=== PATIENT | male | born 1995 | race Caucasian/White ===

== ENCOUNTER 2020-05-13 14:35 | Emergency (ER) | payer OTHER ==
[2020-05-13] MEDS ORDERED: IBUPROFEN 600MG TAB As Ordered ONE (15:59)
[2020-05-13] MEDS ORDERED: IBUPROFEN 600MG TAB ONE (15:59)
[2020-08-05] MEDS ORDERED: OXYC1TAB23 PO (13:12)
== END 2020-05-13 18:00 | disposition home or self-care (01) ==
LOC: M ED 14:35
DX: T14.8XXA Other injury of unspecified body region, initial encounter (principal); V43.52XA Car driver injured in collision with other type car in traffic accident, initial encounter; Y92.410 Unspecified street and highway as the place of occurrence of the external cause

== ENCOUNTER 2020-07-29 16:11 | Emergency (ER) | payer OTHER ==
[~2020-07-29] VITALS: Ht 182.9 cm; Wt 89.5 kg
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
[2020-07-29] MEDS ORDERED: NAPR-837 PO (17:29)
[2020-07-29] MEDS ORDERED: NORC1TAB7 PO (17:29)
[2020-07-29] MEDS ORDERED: PERCOCET 5MG/325MG TAB PO ONE (17:30)
[2020-07-29] MEDS ORDERED: NAPROXEN 250 MG TAB PO ONE (17:30)
[2020-07-29 17:47] VITALS: BP 160/78
[2020-08-05] MEDS ORDERED: OXYC1TAB23 PO (13:12)
== END 2020-07-29 17:47 | disposition home or self-care (01) ==
LOC: M ED 16:11
DX: S42.021A Displaced fracture of shaft of right clavicle, initial encounter for closed fracture (principal); S06.0X0A Concussion without loss of consciousness, initial encounter; S50.311A Abrasion of right elbow, initial encounter; M25.542 Pain in joints of left hand; V28.4XXA Motorcycle driver injured in noncollision transport accident in traffic accident, initial encounter; Y92.410 Unspecified street and highway as the place of occurrence of the external cause

== ENCOUNTER 2020-08-06 11:28 | Day surgery (SDC) | payer OTHER ==
[~2020-08-06] VITALS: Ht 182.9 cm; Wt 87.5 kg
[~2020-08-06 11:28] MED LIST: LR 1,000 ML IV ONE; NAPR-837 PO; NORC1TAB7 PO; OXYC1TAB23 PO; ceFAZolin SOD 2 GM in IV 1 EA IV ONE
[2020-08-06] MEDS ORDERED: ceFAZolin 1GM VIAL (J0690 PER 500MG) As Ordered ONE (13:59)
[2020-08-06] MEDS ORDERED: BUPIVACAINE/EPIN 0.5% 30 ML VIAL As Ordered ONE (14:44)
[2020-08-06] MEDS ORDERED: MIDAZOLAM INJ 2MG/2ML VIAL (J2250 PER 1MG) As Ordered ONE (14:46)
[2020-08-06] MEDS ORDERED: ONDANSETRON 4MG/2ML VIAL As Ordered ONE (14:46)
[2020-08-06] MEDS ORDERED: propofoL 200 MG/20 ML VIAL As Ordered ONE (14:46)
[2020-08-06] MEDS ORDERED: LIDOCAINE 2% 100MG/5ML SDV (FOR ANES.) As Ordered ONE (14:46)
[2020-08-06] MEDS ORDERED: HYDROmorphone HCL 2 MG/ML 1ML VIAL (J1170) As Ordered ONE (14:46)
[2020-08-06] MEDS ORDERED: ROCURONIUM BROMIDE 50 MG/5 ML VIAL As Ordered ONE (14:46)
[2020-08-06] MEDS ORDERED: fentaNYL 100 MCG/2 ML INJECTION (J3010) As Ordered ONE (14:46)
[2020-08-06] MEDS ORDERED: dexameTHASONE 4 MG/ML 1ML VIAL (J1100 PER 1MG) As Ordered ONE (14:46)
[2020-08-06] MEDS ORDERED: SUGAMMADEX SODIUM 500 MG/5 ML VIAL (BRIDION) As Ordered ONE (14:56)
[2020-08-06] MEDS ORDERED: KETOROLAC 60MG 2ML VIAL As Ordered ONE (15:09)
[2020-08-06] MEDS ORDERED: PERCOCET 5MG/325MG TAB PO PRN ×2 (15:45→16:00)
[2020-08-06] MEDS ORDERED: ONDANSETRON 4MG/2ML VIAL IV PRN ×2 (15:45→16:00)
[2020-08-06] MEDS ORDERED: LR 1,000 ML IV SCH ×2 (15:45→16:00)
[2020-08-06] MEDS ORDERED: METOCLOPRAMIDE INJ 10MG/2ML VIAL (J2765 PER 1) IV PRN (15:45)
[2020-08-06] MEDS: fentaNYL 100 MCG/2 ML INJECTION (J3010) IV PRN ×2 (15:59→16:04)
[2020-08-06] MEDS ORDERED: ACETAMINOPHEN TAB 650MG DOSE (2X325MG) PO PRN (16:00)
[2020-08-06] MEDS ORDERED: MORPHINE 2 MG/ML 1ML VIAL (J2270) IV PRN (16:00)
--- NOTE | 2020-08-06 16:07 | REP ---
INDICATION: RIGHT CLAVICLE FRACTURE. COMPARISON: 07/29/2020. TECHNIQUE: Three C-arm views right clavicle performed. FINDINGS: Metallic plate and screws are seen in the right clavicle bridging a fracture of the midshaft. The osseous structures are well-aligned. IMPRESSION: 2 seconds of fluoroscopy time utilized. <Electronically signed by Shravan Vela > 08/06/20 [id number]
[2020-08-06 17:35] VITALS: BP 122/70
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
== END 2020-08-06 17:48 | disposition home or self-care (01) ==
LOC: M SDC 11:28
PROVIDERS: ATTEND Orthopaedic Surgery Sports Medicine
DX: S42.021A Displaced fracture of shaft of right clavicle, initial encounter for closed fracture (principal); V29.9XXA Motorcycle rider (driver) (passenger) injured in unspecified traffic accident, initial encounter; Y92.410 Unspecified street and highway as the place of occurrence of the external cause; Y93.9 Activity, unspecified; Y99.9 Unspecified external cause status; F17.218 Nicotine dependence, cigarettes, with other nicotine-induced disorders
CPT/HCPCS: 23515; 76000; C1713; J0690; J1100; J1170; J1885; J2250; J2405; J3010

== ENCOUNTER 2021-08-04 06:56 | Emergency (ER) | payer OTHER ==
[~2021-08-04] VITALS: Ht 180.3 cm; Wt 86.6 kg
[~2021-08-04 06:56] MED LIST changes: -LR 1,000 ML IV ONE; -ceFAZolin SOD 2 GM in IV 1 EA IV ONE
--- OUTSIDE RECORDS SUMMARY | 2021-08-04 07:08 | CCD ---
Author Author [facility] Organization [facility] Address Unknown Phone Unavailable Care Team Providers Care Manager Appointment Name Role Phone Fish[facility] Unavailable Unavailabl e Fish, [facility], PA-C Unavailable Unavailabl e Fish, [facility], PA-C Unavailable Unavailabl e Fish, [facility], PA-C Unavailable Unavailabl e Fish, [facility], PA-C Unavailable Unavailabl e Fish, [facility], PA-C Unavailable Unavailabl e Fish, [facility], PA-C Unavailable Unavailabl e Fish, [facility], PA-C Unavailable Unavailabl e Fish, [facility], PA-C Unavailable Unavailabl e Fish, [facility], PA-C Unavailable Unavailabl e Fish, [facility], PA-C Unavailable Unavailabl e Fish, [facility], PA-C Unavailable Unavailabl e Fish, [facility], PA-C Unavailable Unavailabl e Fish, [facility], PA-C Unavailable Unavailabl e Fish, [facility], PA-C Unavailable Unavailabl e Fish, [facility], PA-C Unavailable Unavailabl e Fish, [facility], PA-C Unavailable Unavailabl e Fish, [facility], PA-C Unavailable Unavailabl e Fish, [facility], PA-C Unavailable Unavailabl e Fish, [facility], PA-C Unavailable Unavailabl e Fish, [facility], PA-C Unavailable Unavailabl e Fish, [facility], PA-C Unavailable Unavailabl e Fish, [facility], PA-C Unavailable Unavailabl e Fish, [facility] Unavailable Unavailabl e Fish, [facility] Unavailable Unavailabl e Fish, Lashaun [facility], PA-C Unavailable Unavailabl e Fish, Lashaun [facility], PA-C Unavailable Unavailabl e Fish, Lashaun [facility], PA-C Unavailable Unavailabl e Fish, Lashaun [facility], PA-C Unavailable Unavailabl e Fish, Lashaun [facility], PA-C Unavailable Unavailabl e Fish, Lashaun [facility], PA-C Unavailable Unavailabl e Fish, Lashaun [facility], PA-C Unavailable Unavailabl e Fish, [facility] Unavailable Unavailabl e Fish, [facility] Unavailable Unavailabl e Fish, [facility]un [facility], [facility]C Unavailable Unavailabl e Fish, Lashaun [facility], PA-C Unavailable Unavailabl e Mollison, Tim Frank MD Unavailable Unavailable Mollison, Tim Frank MD Unavailable Unavailable Mollison, Tim Frank MD Unavailable Unavailable Mollison, Tim Frank MD Unavailable Unavailable Mollison, Tim Frank MD Unavailable Unavailable Mollison, Tim Frank MD Unavailable Unavailable Mollison, Tim Frank MD Unavailable Unavailable Mollison, Tim Frank MD Unavailable Unavailable Mollison, Tim Frank MD Unavailable Unavailable Mollison, Tim Frank MD Unavailable Unavailable Mollison, Tim Frank MD Unavailable Unavailable Mollison, Tim Frank MD Unavailable Unavailable Mollison, Tim Frank MD Unavailable Unavailable Mollison, Tim Frank MD Unavailable Unavailable Mollison, Tim Frank MD Unavailable Unavailable Mollison, Tim Frank MD Unavailable Unavailable Mollison, Tim Frank MD Unavailable Unavailable Mollison, Tim Frank MD Unavailable Unavailable Mollison, Tim Frank MD Unavailable Unavailable Mollison, Tim Frank MD Unavailable Unavailable Mollison, Tim Frank MD Unavailable Unavailable Mollison, Tim Frank MD Unavailable Unavailable Mollison, Tim Frank MD Unavailable Unavailable Mollison, Tim Frank MD Unavailable Unavailable Mollison, Tim Frank MD Unavailable Unavailable Mollison, Tim Frank MD Unavailable Unavailable Mollison, Tim Frank MD Unavailable Unavailable Mollison, Tim Frank MD Unavailable Unavailable Mollison, Tim Frank MD Unavailable Unavailable Mollison, Tim Frank MD Unavailable Unavailable Re-disclosure Warning The records that you are about to access may contain information from federally-assisted alcohol or drug abuse programs. If such information is present, then the following federally mandated warning applies: This information has been disclosed to you from records protected by federal confidentiality rules (42 CFR part 2). The federal rules prohibit you from making any further disclosure of this information unless further disclosure is expressly permitted by the written consent of the person to whom it pertains or as otherwise permitted by 42 CFR part 2. A general authorization for the release of medical or other information is NOT sufficient for this purpose. The Federal rules restrict any use of the information to criminally investigate or prosecute any alcohol or drug abuse patient.The records that you are about to access may contain highly sensitive health information, the redisclosure of which is protected by Article 27-F of the [facility] Public Health law. If you continue you may have access to information: Regarding HIV / AIDS; Provided by facilities licensed or operated by the [facility] Office of Mental Health; or Provided by the [facility] Office for People With Developmental Disabilities. If such information is present, then the following [facility] mandated warning applies: This information has been disclosed to you from confidential records which are protected by state law. State law prohibits you from making any further disclosure of this information without the specific written consent of the person to whom it pertains, or as otherwise permitted by law. Any unauthorized further disclosure in violation of state law may result in a fine or correction sentence or both. A general authorization for the release of medical or other information is NOT sufficient authorization for further disc losure. Encounters Encounter Providers Location Date Indications Data Source(s ) Outpatient Attender: Zac Piper/Wally/Ernie/Nora indl 08/05/2020 08:00:00 AM EDT [facility] ([facility], ) OFFICE OUTPATIENT NEW 30 MINUTES Attender: Edith LORA PA-C Physical Therapy 08/04/2020 02:45:00 PM EDT [facility] ([facility] ) Immunizations Vaccine Date Status Description Data Source(s) COVID-19 VACCINE Moderna 02/21/2021 12:00:00 AM EDT completed [facility]IS Vaccine Series Complete: YESThis Data wa s Submitted to [facility] Via [employer]. COVID-19 VACCINE Moderna 01/24/2021 12:00:00 AM EDT completed SCSIIS Vaccine Series Complete: NOThis Data was Submitted to [facility] Via [facility]SIIS. Medications Medication Brand Name Start Date Product Form Dose Route Admi nistrative Instructions Pharmacy Instructions Status Indications Reaction Description Data Source(s) Acetaminophen 325 MG / Oxycodone Hydrochloride 5 MG Or al Tablet [Percocet] Percocet 08/04/2020 12:00:00 AM EDT active [facility] ([facility]) Insurance Providers Payer name Policy type / Coverage type Policy ID Covered alliance party ID Covered alliance party's relationship to herrera Policy Herrera Plan Information [facility] ACTIVE DUTY [id number] SELF PAY ONLY [id number] [facility] HUMANA - O/P [id number] Problems, Conditions, and Diagnoses No Information Surgeries/Procedures No Information Results ID Date Data Source [id number] 11/27/2020 10:55:00 AM EST [facility] Name Value Range Interpretation Code Description Data Emily rce(s) Supporting Document(s) SARS coronavirus 2 RNA Detected [facility] This lab was ordered by [facility] and reported by [facility]. Procedure Social History No Information Vital Signs ID Date Data Source UNK Name Value Range Interpretation Code Description Data Source(s) Body temperature 97.1 [degF] 97.1 [degF] [facility] ([facility]) [facility] height [facility] [in_i] [facility] 5'10" Body weight 190.00 [lb_av] 190.00 [lb_av] [facility] T ([facility]) Body mass index (BMI) [Ratio] 27.3 kg/m2 27.3 k g/m2 [facility] ([facility]) [place] body weight 166 [lb_av] 166 [lb_av] [facility] T ([facility]) Body weight 86.184 kg 86.184 kg [facility] ([facility]) Body temperature 97.1 [degF] 97.1 [[facility]F] [facility] Body height 70 [in_i] 70 [in_i] [facility] ([facility]) 5'10" Body weight 190.50 [lb_av] 190.50 [lb_av] [facility] T ([facility]) Body mass index (BMI) [Ratio] 27.3 kg/m2 27.3 k g/m2 [facility] ([facility])
[2021-08-04] MEDS ORDERED: ONDANSETRON 4MG/2ML VIAL IV ONE (07:30)
[2021-08-04] MEDS ORDERED: NS 1,000 ML IV ONE (07:30)
[2021-08-04] MEDS ORDERED: KETOROLAC 30 MG/ML 1ML VIAL IV ONE (07:30)
--- OUTSIDE RECORDS SUMMARY | 2021-08-04 07:30 | CCD ---
Author Author [facility] Organization [facility] Address Unknown Phone Unavailable Care Team Providers Care Hand Buffer Name Role Phone Fish, [facility] Unavailable Unavailabl e Fish, [facility], PA-C Unavailable Unavailabl e Fish, [facility], PA-C Unavailable Unavailabl e Fish, [facility], PA-C Unavailable Unavailabl e Fish, [facility], PA-C Unavailable Unavailabl e Fish, [facility], PA-C Unavailable Unavailabl e Fish, [facility], PA-C Unavailable Unavailabl e Fish, [facility], PA-C Unavailable Unavailabl e Fish, [facility], PA-C Unavailable Unavailabl e Fish, [facility], PA-C Unavailable Unavailabl e Fish, [facility], PA-C Unavailable Unavailabl e Fish, [facility], PA-C Unavailable Unavailabl e Fish, [facility], PA-C Unavailable Unavailabl e Fish, [facility], PA-C Unavailable Unavailabl e Fish, [facility], PA-C Unavailable Unavailabl e Fish, [facility], PA-C Unavailable Unavailabl e Fish, [facility], PA-C Unavailable Unavailabl e Fish, [facility], PA-C Unavailable Unavailabl e Fish, [facility], PA-C Unavailable Unavailabl e Fish, [facility], PA-C Unavailable Unavailabl e Fish, [facility], PA-C Unavailable Unavailabl e Fish, [facility], PA-C Unavailable Unavailabl e Fish, [facility], PA-C Unavailable Unavailabl e Fish, [facility] Unavailable Unavailabl e Fish, [facility] Unavailable Unavailabl e Fish, Lashaun [facility], PA-C Unavailable Unavailabl e Fish, Lashaun [facility], PA-C Unavailable Unavailabl e Fish, Lashaun [facility], PA-C Unavailable Unavailabl e Fish, Lashaun [facility], PA-C Unavailable Unavailabl e Fish, Lashaun [facility], PA-C Unavailable Unavailabl e Fish, Lashaun [facility], PA-C Unavailable Unavailabl e Fish, Lashaun [facility], PA-C Unavailable Unavailabl e Fish, [facility] Unavailable Unavailabl e Fish, [facility], [facility] Unavailable Unavailabl e Fish, [facility] Unavailable Unavailabl e Fish, Lashaun [facility], PA-C Unavailable Unavailabl e Mollison, Tim [...] is protected by Article 27-F of the [facility] Public Health law. If you continue you may have access to information: Regarding HIV / AIDS; Provided by facilities licensed or operated by the [facility] Office of Mental Health; or Provided by the [facility] Office for People With Developmental Disabilities. If such information is present, then the following [facility] mandated warning applies: This information has been [...] law may result in a fine or snf sentence or both. A general authorization for the release of medical or other information is NOT sufficient authorization for further disc losure. Encounters Encounter Providers Location Date Indications Data Source(s ) Outpatient Attender: Zac Piper/Wally/Ernie/Nora indl 08/05/2020 08:00:00 AM EDT [facility] ([facility], ) OFFICE OUTPATIENT NEW 30 MINUTES Attender: Edith LORA PA-C Physical Therapy 08/04/2020 02:45:00 PM EDT [facility] ([facility] ) Immunizations Vaccine Date Status Description Data Source(s) COVID-19 VACCINE Moderna 02/21/2021 12:00:00 AM EDT completed KSSIIS Vaccine Series Complete: YESThis Data wa s Submitted to [facility] Via [employer]. COVID-19 VACCINE Moderna 01/24/2021 12:00:00 AM EDT completed KSSIIS Vaccine Series Complete: NOThis Data was Submitted to [facility] Via NYSIIS. Medications Medication Brand Name Start Date Product Form Dose Route Admi nistrative Instructions Pharmacy Instructions Status Indications Reaction Description Data Source(s) Acetaminophen 325 MG / Oxycodone Hydrochloride 5 MG Or al Tablet [Percocet] Percocet 08/04/2020 12:00:00 AM EDT active [facility] ([facility]) Insurance Providers Payer name Policy type / Coverage type Policy ID Covered republican ID Covered republican's relationship to herrera Policy Herrera Plan Information [facility] ACTIVE DUTY [id number] SELF PAY ONLY [id number] [facility] HUMANA - O/P [id number] 18 [id number] Problems, Conditions, and Diagnoses No Information Surgeries/Procedures No Information Results ID Date Data Source [id number] 11/27/2020 10:55:00 AM EST [facility] Name Value Range Interpretation Code Description Data Emily rce(s) Supporting Document(s) SARS coronavirus 2 RNA Detected [facility] This lab was ordered by [facility] and reported by [facility]. Procedure Social History No Information Vital Signs ID Date Data Source UNK Name Value Range Interpretation Code Description Data Source(s) Body temperature 97.1 [degF] 97.1 [degF] [facility] ([facility]) Body height 70 [in_i] 70 [in_i[facility] 5'10" Body weight 190.00 [lb_av] 190.00 [lb_av] [facility] T ([facility]) Body mass index (BMI) [Ratio] 27.3 kg/m2 27.3 k g/m2 [facility] ([facility]) [place] body weight 166 [lb_av] 166 [lb_av] [facility] T ([facility]) Body weight 86.184 kg 86.184 kg [facility] ([facility]) Body temperature 97.1 [degF] 97.1 [degF] [facility] Body height 70 [in_i] 70 [in_i] [facility] ([facility]) 5'10" Body weight 190.50 [lb_av] 190.50 [lb_av] [facility] T ([facility]) Body mass index (BMI) [Ratio] 27.3 kg/m2 27.3 k g/m2 [facility] ([facility])
[2021-08-04] MEDS ORDERED: ISOVUE-370 76% 100ML VIAL As Ordered ONE (07:56)
[2021-08-04 08:03] LABS: BASO # 0.1 10^3/uL (0.0-0.2); BASO % 1.2 % (0.0-1.0); EOS # 0.1 10^3/uL (0.0-0.5); EOS % 1.8 % (0.0-3.0); HEMOGLOBIN 14.5 g/dl (13.5-17.5); LYMPH # 2.2 10^3/uL (1.5-5.0); LYMPH % 32.8 % (24.0-44.0); MEAN CORPUSCULAR HEMOGLOBIN 28.5 pg (27.0-33.0); MEAN CORPUSCULAR HGB CONC 33.7 g/dl (32.0-36.5); MEAN CORPUSCULAR VOLUME 84.5 fl (80.0-96.0); MONO # 0.8 10^3/uL (0.0-0.8); NEUTROPHILS # 3.6 10^3/uL (1.5-8.5); NEUTROPHILS % 53.1 % (36.0-66.0); PLATELET COUNT, AUTOMATED 247 10^3/uL (150-450); RED BLOOD COUNT 5.09 10^6/uL (4.30-6.10); WHITE BLOOD COUNT 6.8 10^3/uL (4.0-10.0)
[2021-08-04 08:27] LABS: ALBUMIN 3.7 GM/DL (3.2-5.2); BILIRUBIN,DIRECT 0.1 MG/DL (0.0-0.2); BILIRUBIN,TOTAL 0.4 MG/DL (0.2-1.0); TOTAL PROTEIN 7.4 GM/DL (6.4-8.2)
--- NOTE | 2021-08-04 08:32 | REP ---
INDICATION: epigastric . COMPARISON: None. TECHNIQUE: Standard helical technique after the intravenous administration of 100 cc Isovue 370 FINDINGS: The lung bases are clear. The liver, gallbladder, spleen, pancreas, adrenal glands, and kidneys are within normal limits. The abdominal aorta and para-aortic regions are within normal limits. The bowel loops and the mesenteries are within normal limits. There is no evidence of a mass or adenopathy. There is no free fluid or free air. Bone window technique throughout the examination shows the osseous structures to be within normal limits. IMPRESSION: CT findings are within normal limits. <Electronically signed by Jewel Roberson > 08/04/21 0880
[2021-08-04] MEDS ORDERED: ZOFR4TAB16 PO (09:28)
[2021-08-04 09:44] VITALS: BP 102/70
== END 2021-08-04 09:47 | disposition home or self-care (01) ==
LOC: M ED 06:56
DX: R10.9 Unspecified abdominal pain (principal); R11.2 Nausea with vomiting, unspecified; R19.7 Diarrhea, unspecified
CPT/HCPCS: 36415; 74177; 80047; 80076; 83605; 83690; 85025; 96361; 96374; 96375; 99284; J1885; J2405; Q9967